=== PATIENT | female | born 1955 | race Caucasian/White ===

== ENCOUNTER 2018-02-14 19:35 | Emergency (ER) | payer MEDICARE, BC ==
[2015-12-24 12:11] VITALS: BMI 20.9
[~2018-02-14 19:35] MED LIST: AMBIEN10 MG PO; ASPIRIN325 MG PO; KLONOPIN0.5 MG PO; LIPITOR20 MG PO; LISINOPRIL2.5 MG PO; PLAVIX75 MG PO; PROTONIX40 MG PO; PROZAC20 MG PO
[2018-02-14 20:16] LABS: BASOPHILS 0.2 % (0-2); EOSINOPHILS 1.9 % (0-7); HEMATOCRIT 34.3 % (36.0-48.0); HEMOGLOBIN 11.5 g/dL (12-16); IMMATURE GRANULOCYTES 0.2 % (0-5); LYMPHOCYTES 30.2 % (15-50); MCHC 33.5 g/dL (31.0-37.0); MCV 92.5 fL (80.0-100.0); MEAN PLATELET VOLUME 9.6 fL (7.4-10.4); MONOCYTES 7.9 % (2-11); NEUTROPHILS 59.6 % (40-80); PLATELET COUNT 186 10x3/uL (130-400); RBC 3.71 10x6/uL (4.00-5.40); RDW 11.9 % (11.5-14.5); WBC 4.7 10x3/uL (4.8-10.8)
[2018-02-14 20:42] LABS: ALBUMIN 3.5 g/dL (3.4-5.0); ALKALINE PHOSPHATASE 109 U/L (46-116); ALT (SGPT) 23 U/L (10-68); CALC OSMOLALITY 281 mosm/kg (275-300); CALCIUM 8.7 mg/dL (8.5-10.1); CARBAMAZEPINE (TEGRETOL) 11.8 ug/mL (4.0-12.0); CARBON DIOXIDE 28.5 mmol/L (21.0-32.0); CHLORIDE - SERUM 103 mmol/L (98-107); CREATININE - SERUM 0.6 mg/dL (0.6-1.3); GLUCOSE 85 mg/dL (74-106); POTASSIUM - SERUM 3.7 mmol/L (3.5-5.1); PROTEIN - SERUM 6.7 g/dL (6.4-8.2); SODIUM 140 mmol/L (136-145); UREA NITROGEN 23 mg/dL (7-18); eGFR NON AFRICAN AMERICAN > 90 mL/min (90-120)
== END 2018-02-14 23:13 | disposition home or self-care (01) ==
LOC: D.ER 19:35
PROVIDERS: Emergency Medicine
DX: T65.91XA Toxic effect of unspecified substance, accidental (unintentional), initial encounter (principal); Y92.019 Unspecified place in single-family (private) house as the place of occurrence of the external cause; I10 Essential (primary) hypertension; Z86.73 Personal history of transient ischemic attack (TIA), and cerebral infarction without residual deficits; F17.200 Nicotine dependence, unspecified, uncomplicated

== ENCOUNTER 2018-05-02 11:28 | Outpatient (CLI) | payer MEDICARE, BC ==
[2015-12-24 12:11] VITALS: BMI 20.9
== END 2018-05-02 23:59 | disposition home or self-care (01) ==
LOC: D.MAMMO 11:28
DX: Z12.31 Encounter for screening mammogram for malignant neoplasm of breast (principal)

== ENCOUNTER → 2018-11-07 12:41 | Outpatient (CLI) | payer MEDICARE, BC ==
[2015-12-24 12:11] VITALS: BMI 20.9
[2018-11-10 21:06] LABS: OVA + PARASITE EXAM Final report (())
== END | disposition home or self-care (01) ==
LOC: D.LAB 12:41
PROVIDERS: Internal Medicine Gastroenterology
DX: R19.7 Diarrhea, unspecified (principal); R10.9 Unspecified abdominal pain

== ENCOUNTER → 2018-11-17 14:52 | Outpatient (CLI) | payer MEDICARE, BC ==
[2015-12-24 12:11] VITALS: BMI 20.9
== END | disposition home or self-care (01) ==
LOC: D.MRI 14:52
DX: M26.629 Arthralgia of temporomandibular joint, unspecified side (principal)

== ENCOUNTER 2019-04-25 10:47 | Emergency (ER) | payer MEDICARE, BC ==
[~2019-04-25] VITALS: Ht 165.1 cm; Wt 56.8 kg
[2019-04-25 10:51] VITALS: Ht 165.1 cm; Wt 56.8 kg
[2019-04-25] MEDS ORDERED: NEURONTIN800 MG PO (10:54)
[2019-04-25] MEDS ORDERED: BACLOFEN10 MG PO (10:55)
[2019-04-25] MEDS ORDERED: PAMELOR10 MG PO (10:55)
[2019-04-25] MEDS ORDERED: TEGRETOL200 MG PO (10:56)
[2019-04-25] MEDS ORDERED: LAMICTAL100 MG PO (11:46)
[2019-04-25 12:55] VITALS: BP 154/93
== END 2019-04-25 13:00 | disposition home or self-care (01) ==
LOC: D.ER 10:47
DX: T42.6X1A Poisoning by other antiepileptic and sedative-hypnotic drugs, accidental (unintentional), initial encounter (principal); Y92.019 Unspecified place in single-family (private) house as the place of occurrence of the external cause